=== PATIENT | male | born 1970 | race Caucasian/White ===

== ENCOUNTER 2022-06-10 11:08 | Day surgery (SDC) | payer OTHER ==
[~2022-06-10] VITALS: Ht 167.6 cm; Wt 86.2 kg
[2022-06-10] MEDS ORDERED: diphenhydrAMINE 50 MG/ML VIAL ONE (12:22)
[2022-06-10] MEDS ORDERED: MIDAZOLAM 2 MG/2 ML VIAL ONE (12:22)
[2022-06-10] MEDS ORDERED: fentaNYL citrate 0.05 MG/ML VIAL ONE ×2 (12:22→12:23)
[2022-06-10] MEDS ORDERED: MIDAZOLAM 2 MG/2 ML VIAL IVP ONE (13:15)
[2022-06-10] MEDS ORDERED: fentaNYL citrate 0.05 MG/ML VIAL IVP ONE (13:15)
[2022-06-10] MEDS ORDERED: diphenhydrAMINE 50 MG/ML VIAL IVP ONE (13:15)
== END 2022-06-10 14:19 | disposition home or self-care (01) ==
LOC: MDS 11:08 → MMU 11:10 → MDS 14:19
PROVIDERS: ATTEND Internal Medicine Gastroenterology
DX: Z12.11 Encounter for screening for malignant neoplasm of colon (principal); K63.5 Polyp of colon; Z88.8 Allergy status to other drugs, medicaments and biological substances; Z20.822 Contact with and (suspected) exposure to COVID-19
CPT/HCPCS: 45385; 87426; J1200; J2250; J3010